=== PATIENT | male | born 1935 | race Caucasian/White ===

== ENCOUNTER → 2016-05-29 | Day surgery (SDC) | payer MEDICARE, BC ==
[~2016-05-29] VITALS: Ht 182.9 cm; Wt 69.3 kg
[~2016-05-29] MED LIST: ASPIRIN 81M81 MG/TA2 PO; BACTRIM DS 8001 TAB PO; CIPRO 500MG TA500 MG PO; FERROUS SU325 MG/TAB PO; IRON325 MG PO; LASIX 20MG TABL20 MG PO; MULTI VITAMINS1 TAB PO; MULTIPLE VITAMI1 CAP PO; NORCO 325 MG-51 TAB PO
[2016-05-29 09:56] VITALS: BP 113/63; PULSE 75; TEMP 97.3
[2016-05-29 11:42] VITALS: BP 115/49; PULSE 72; TEMP 98.2
[2016-05-29 11:45] VITALS: BP 108/49; PULSE 73
[2016-05-29 12:00] VITALS: BP 117/46; PULSE 76
[2016-05-29 12:15] VITALS: BP 103/53; PULSE 77
[2016-05-29 12:30] VITALS: BP 122/59; PULSE 76
== END ==
LOC: SDCO 09:05
DX: C78.7 Secondary malignant neoplasm of liver and intrahepatic bile duct (principal); C20 Malignant neoplasm of rectum; Z92.21 Personal history of antineoplastic chemotherapy; Z92.3 Personal history of irradiation
CPT/HCPCS: C1788; J0690; J1644; J2250; J2405; J2704; J3010; J7120

== ENCOUNTER 2016-06-28 18:04 | Inpatient (IN) | payer MEDICARE, BC ==
[~2016-06-28] VITALS: Ht 182.9 cm; Wt 61.1 kg
[~2016-06-28 18:04] MED LIST changes: -ASPIRIN 81M81 MG/TA2 PO; -BACTRIM DS 8001 TAB PO; -CIPRO 500MG TA500 MG PO; -FERROUS SU325 MG/TAB PO; -LASIX 20MG TABL20 MG PO; -MULTIPLE VITAMI1 CAP PO; -NORCO 325 MG-51 TAB PO
[2016-06-28 18:18] VITALS: BP 111/54; PULSE 89; TEMP 97.8
[2016-06-28 22:46] VITALS: BP 131/61; PULSE 100; TEMP 98.1
[2016-06-29] VITALS (17 sets, daily range): BP systolic 76–125; BP diastolic 29–59; PULSE 54–102; TEMP 97.4–101.4
[2016-06-30 01:32] VITALS: BP 93/43; PULSE 83; TEMP 99.3
[2016-06-30 06:17] VITALS: BP 98/54; PULSE 80; TEMP 98.2
[2016-06-30 09:20] VITALS: BP 107/53; PULSE 84; TEMP 97.4
[2016-06-30 13:37] VITALS: BP 111/48; PULSE 81; TEMP 98.4
[2016-06-30] MEDS ORDERED: NORCO 325 MG-51 TAB PO (16:15)
[2016-06-30] MEDS ORDERED: BACTRIM DS 8001 TAB PO (16:16)
== END 2016-06-30 17:20 | disposition home or self-care (01) | DRG 982 ==
LOC: SURG 18:04
PROVIDERS: Urology
PROC: 0KBM0ZZ Excision of Perineum Muscle, Open Approach (ICD-10-PCS; principal; 2016-06-29 10:30)
DX: N49.2 Inflammatory disorders of scrotum (principal); C20 Malignant neoplasm of rectum; C78.7 Secondary malignant neoplasm of liver and intrahepatic bile duct; B96.20 Unspecified Escherichia coli [E. coli] as the cause of diseases classified elsewhere
CPT/HCPCS: J0696; J2405; J2704; J3010; J7030

== ENCOUNTER → 2016-06-28 | Outpatient (CLI) | payer MEDICARE, BC | LOC: COL.RAD 09:00 | DX: N49.2 Inflammatory disorders of scrotum (principal) ==

== ENCOUNTER 2016-08-10 07:22 | Inpatient (IN) | payer MEDICARE, BC ==
[~2016-08-10] VITALS: Ht 182.9 cm; Wt 65.4 kg
[2016-08-10] VITALS (18 sets, daily range): BP systolic 103–152; BP diastolic 50–75; PULSE 66–81; TEMP 97–98.1
[~2016-08-10 07:22] MED LIST changes: +BACTRIM DS 8001 TAB PO; +NORCO 325 MG-51 TAB PO
[2016-08-10] MEDS ORDERED: ASPIRIN 81M81 MG/TA2 PO (07:42)
[2016-08-10] MEDS ORDERED: CIPRO 500MG TA500 MG PO (07:42)
[2016-08-10 08:26] LABS: BASO # 0.1 (0.0-0.2); BASO % 0.5 % (0.0-2.0); EOS # 0.1 (0.0-0.7); EOS % 0.6 % (0-4.0); GRAN # 6.5 (1.4-6.5); GRAN % 69.8 % (42.2-75.2); LYMPH # 1.7 (1.2-3.4); LYMPH % 18.6 % (20.0-51.0); MEAN CELL VOLUME 90 fl (80.0-100.0); MEAN CORPUSCULAR HGB CONC 32 g/dl (33.0-37.0); MEAN PLATELET VOLUME 8.6 fl (7.4-10.4); MONO # 0.9 (0.1-0.6); MONO % 10.1 % (1.7-9.3); PLATELET COUNT 205 K/mm3 (130-400); REDCELL DISTRIBUTION WIDTH-CV 19.2 % (11.5-14.5); WHITE BLOOD COUNT 9.3 K/mm3 (4.8-10.8)
[2016-08-10 08:30] LABS: HEMATOCRIT 25.2 % (42.0-52.0); MEAN CORPUSCULAR HEMOGLOBIN 29 pg (27.0-31.0)
[2016-08-10 08:31] LABS: INR 1.2 (0.8-3.0); PROTHROMBIN TIME 13.2 SECONDS (9.7-12.8)
[2016-08-10 08:33] LABS: PARTIAL THROMBOPLASTIN TIME 29.5 SECONDS (26.0-37.0)
[2016-08-10 08:43] LABS: ADJUSTED CALCIUM 9.5 mg/dL (8.4-10.2); ALBUMIN 3.5 gm/dL (3.5-5.0); BILIRUBIN,TOTAL 0.7 mg/dL (0.0-1.0); C-REACTIVE PROTEIN 3.2 mg/dL (0.0-0.9); CALCIUM 9.1 mg/dL (8.4-10.2); CREATININE, serum 1.13 mg/dL (0.66-1.25); POTASSIUM 4.4 mmol/L (3.4-5.0); TOTAL PROTEIN 6.8 gm/dL (6.4-8.2)
[2016-08-10 08:49] LABS: PH 8 (5-8); SQUAMOUS EPITHELIAL None Seen /hpf; URINE BACTERIA None Seen /hpf; URINE BILIRUBIN Negative (NEGATIVE); URINE BLOOD 3+ (NEGATIVE); URINE GLUCOSE 2+ (NEGATIVE); URINE KETONE Trace (NEGATIVE); URINE RBC >50 /hpf; URINE UROBILINOGEN Negative (NEGATIVE); URINE WBC None Seen /hpf
[2016-08-10 08:51] LABS: URINE APPEARANCE Turbid; URINE COLOR Red
[2016-08-11 01:30] VITALS: BP 123/74; PULSE 71; TEMP 98.5
[2016-08-11 05:43] VITALS: BP 110/64; PULSE 69; TEMP 97.7
[2016-08-11 08:58] VITALS: BP 110/57; PULSE 71; TEMP 97.1
[2016-08-11 09:31] LABS: CALCIUM 8.2 mg/dL (8.4-10.2); CREATININE, serum 0.87 mg/dL (0.66-1.25); POTASSIUM 4.2 mmol/L (3.4-5.0)
[2016-08-11 11:38] LABS: BASO % 0.3 % (0.0-2.0); EOS % 0.4 % (0-4.0); GRAN # 5.4 (1.4-6.5); GRAN % 70.6 % (42.2-75.2); LYMPH # 1.2 (1.2-3.4); LYMPH % 16.3 % (20.0-51.0); MEAN CELL VOLUME 90 fl (80.0-100.0); MEAN CORPUSCULAR HGB CONC 33 g/dl (33.0-37.0); MEAN PLATELET VOLUME 8.8 fl (7.4-10.4); MONO # 0.9 (0.1-0.6); MONO % 11.9 % (1.7-9.3); PLATELET COUNT 157 K/mm3 (130-400); RED BLOOD COUNT 2.79 M/mm3 (4.20-5.60); REDCELL DISTRIBUTION WIDTH-CV 19.2 % (11.5-14.5); WHITE BLOOD COUNT 7.6 K/mm3 (4.8-10.8)
[2016-08-11 11:40] LABS: HEMATOCRIT 25.1 % (42.0-52.0); HEMOGLOBIN 8.2 g/dl (13.5-18.0); MEAN CORPUSCULAR HEMOGLOBIN 29 pg (27.0-31.0)
[2016-08-11 14:13] VITALS: BP 111/56; PULSE 89; TEMP 98.3
[2016-08-11 17:32] VITALS: BP 116/76; PULSE 74; TEMP 97.7
[2016-08-11 22:00] VITALS: BP 117/63; PULSE 80; TEMP 98.5
[2016-08-12 06:00] VITALS: BP 115/55; PULSE 78; TEMP 98
[2016-08-12 09:24] VITALS: BP 131/53; PULSE 78; TEMP 97.9
[2016-08-12] MEDS ORDERED: FERROUS SU325 MG/TAB PO (11:47)
[2016-08-12] MEDS ORDERED: NORCO 325 MG-51 TAB PO (11:47)
[2016-08-12 13:16] VITALS: BP 137/56; PULSE 83; TEMP 97.9
== END 2016-08-12 14:39 | disposition home or self-care (01) | DRG 698 ==
LOC: COL.ER 07:22 → JCC 10:25
PROVIDERS: Emergency Medicine; Family Medicine; Urology
PROC: 0TCB8ZZ Extirpation of Matter from Bladder, Via Natural or Artificial Opening Endoscopic (ICD-10-PCS; principal; 2016-08-10 10:30)
DX: N30.41 Irradiation cystitis with hematuria (principal); E43 Unspecified severe protein-calorie malnutrition; C19 Malignant neoplasm of rectosigmoid junction; C78.7 Secondary malignant neoplasm of liver and intrahepatic bile duct; Z68.1 Body mass index [BMI] 19.9 or less, adult; N32.89 Other specified disorders of bladder; D64.9 Anemia, unspecified; E86.0 Dehydration
CPT/HCPCS: 99222-AI; 99232-AI; 99239; J0690; J1100; J2405; J2704; J3010; J7030; P9016; Q9967

== ENCOUNTER 2016-09-07 11:28 | Inpatient (IN) | payer MEDICARE, BC ==
[~2016-09-07] VITALS: Ht 182.9 cm; Wt 69.1 kg
[~2016-09-07 11:28] MED LIST changes: +ASPIRIN 81M81 MG/TA2 PO; +CIPRO 500MG TA500 MG PO; +FERROUS SU325 MG/TAB PO
[2016-09-07] MEDS ORDERED: MULTIPLE VITAMI1 CAP PO (14:14)
[2016-09-07] MEDS ORDERED: NORCO 325 MG-51 TAB PO ×2 (14:15→14:16)
[2016-09-07 14:41] LABS: BASO % 0.1 % (0.0-2.0); GRAN # 5.6 (1.4-6.5); GRAN % 81.1 % (42.2-75.2); LYMPH % 14.4 % (20.0-51.0); MEAN CELL VOLUME 91 fl (80.0-100.0); MEAN CORPUSCULAR HGB CONC 32 g/dl (33.0-37.0); MEAN PLATELET VOLUME 8.7 fl (7.4-10.4); MONO # 0.3 (0.1-0.6); MONO % 3.7 % (1.7-9.3); PLATELET COUNT 275 K/mm3 (130-400); RED BLOOD COUNT 3.39 M/mm3 (4.20-5.60); REDCELL DISTRIBUTION WIDTH-CV 17.7 % (11.5-14.5); WHITE BLOOD COUNT 6.9 K/mm3 (4.8-10.8)
[2016-09-07 14:42] LABS: HEMATOCRIT 30.7 % (42.0-52.0); HEMOGLOBIN 9.8 g/dl (13.5-18.0); MEAN CORPUSCULAR HEMOGLOBIN 29 pg (27.0-31.0)
[2016-09-07 14:49] LABS: ADJUSTED CALCIUM 9.3 mg/dL (8.4-10.2); ALBUMIN 3.4 gm/dL (3.5-5.0); BILIRUBIN,TOTAL 0.5 mg/dL (0.0-1.0); CALCIUM 8.8 mg/dL (8.4-10.2); CREATININE, serum 1.02 mg/dL (0.66-1.25); POTASSIUM 3.8 mmol/L (3.4-5.0); TOTAL PROTEIN 6.8 gm/dL (6.4-8.2)
[2016-09-07] MEDS ORDERED: LASIX 20MG TABL20 MG PO (16:43)
[2016-09-07 17:35] LABS: PH 6 (5-8); SQUAMOUS EPITHELIAL None Seen /hpf; URINE APPEARANCE Cloudy; URINE BACTERIA Moderate /hpf; URINE BILIRUBIN Negative (NEGATIVE); URINE BLOOD 2+ (NEGATIVE); URINE COLOR Red; URINE GLUCOSE Negative (NEGATIVE); URINE KETONE Negative (NEGATIVE); URINE RBC >50 /hpf; URINE UROBILINOGEN Negative (NEGATIVE)
[2016-09-07 17:36] LABS: URINE WBC >50 /hpf
[2016-09-07 20:00] VITALS: BP 150/72; PULSE 85; TEMP 98.3
[2016-09-08] VITALS (16 sets, daily range): BP systolic 109–152; BP diastolic 45–75; PULSE 71–97; TEMP 96.8–98
[2016-09-09] VITALS (11 sets, daily range): BP systolic 124–143; BP diastolic 51–65; PULSE 85–97; TEMP 97.6–98
[2016-09-09 08:11] LABS: MEAN CELL VOLUME 93 fl (80.0-100.0); MEAN CORPUSCULAR HGB CONC 31 g/dl (33.0-37.0); MEAN PLATELET VOLUME 9.1 fl (7.4-10.4); PLATELET COUNT 206 K/mm3 (130-400); RED BLOOD COUNT 2.31 M/mm3 (4.20-5.60); REDCELL DISTRIBUTION WIDTH-CV 18.1 % (11.5-14.5); WHITE BLOOD COUNT 6.1 K/mm3 (4.8-10.8)
[2016-09-09 08:22] LABS: CALCIUM 7.5 mg/dL (8.4-10.2); MAGNESIUM 2.2 mg/dL (1.6-2.3); PHOSPHOROUS 2.7 mg/dL (2.5-4.5); POTASSIUM 4.2 mmol/L (3.4-5.0)
[2016-09-09 08:27] LABS: HEMATOCRIT 21.4 % (42.0-52.0); HEMOGLOBIN 6.6 g/dl (13.5-18.0); MEAN CORPUSCULAR HEMOGLOBIN 29 pg (27.0-31.0)
[2016-09-09 15:32] LABS: HEMATOCRIT 23.8 % (42.0-52.0); HEMOGLOBIN 7.7 g/dl (13.5-18.0)
[2016-09-10 01:50] VITALS: BP 140/63; PULSE 79; TEMP 99
[2016-09-10 04:45] VITALS: BP 160/74; PULSE 110; TEMP 98.9
[2016-09-10 08:01] LABS: HEMATOCRIT 25.1 % (42.0-52.0); HEMOGLOBIN 7.9 g/dl (13.5-18.0)
[2016-09-10 10:02] VITALS: BP 148/71; PULSE 97; TEMP 97.8
[2016-09-10 13:18] VITALS: BP 160/77; PULSE 99; TEMP 98
[2016-09-10 17:33] VITALS: BP 161/79; PULSE 102; TEMP 98.7
[2016-09-10 22:28] VITALS: BP 153/82; PULSE 102; TEMP 98.2
[2016-09-11 05:01] VITALS: BP 173/86; PULSE 102; TEMP 98.4
[2016-09-11 09:52] VITALS: BP 144/78; PULSE 103; TEMP 98.5
[2016-09-11 13:03] LABS: HEMATOCRIT 25.9 % (42.0-52.0); HEMOGLOBIN 8.3 g/dl (13.5-18.0)
== END 2016-09-11 17:05 | disposition home health service (06) | DRG 329 ==
LOC: COL.ER 11:28 → SURG 15:55
PROVIDERS: Family Medicine; Surgery
PROC: 0D9P0ZZ Drainage of Rectum, Open Approach (ICD-10-PCS; 2016-09-07)
PROC: 0D1N0Z4 Bypass Sigmoid Colon to Cutaneous, Open Approach (ICD-10-PCS; principal; 2016-09-09)
DX: C19 Malignant neoplasm of rectosigmoid junction (principal); E43 Unspecified severe protein-calorie malnutrition; C78.7 Secondary malignant neoplasm of liver and intrahepatic bile duct; N32.1 Vesicointestinal fistula
CPT/HCPCS: A4315; A9284; J0694; J1170; J1650; J1956; J2250; J2405; J2704; J2710; J3010; J7030; J7120; P9016; Q9967

== ENCOUNTER → 2016-09-25 | Outpatient (CLI) | payer MEDICARE, BC ==
[~2016-09-25] MED LIST changes: +LASIX 20MG TABL20 MG PO; +MULTIPLE VITAMI1 CAP PO
== END ==
LOC: WCC 12:37
DX: L89.152 Pressure ulcer of sacral region, stage 2 (principal); T81.31XA Disruption of external operation (surgical) wound, not elsewhere classified, initial encounter; Z71.89 Other specified counseling
CPT/HCPCS: 17717; 27517; A6207; A6212; G0463

== ENCOUNTER → 2016-10-03 | Outpatient (CLI) | payer MEDICARE, BC | LOC: WCC 09:17 | DX: L89.301 Pressure ulcer of unspecified buttock, stage 1 (principal); Z93.3 Colostomy status | CPT/HCPCS: 17717; A6212; G0463 ==

== ENCOUNTER 2016-11-05 10:30 | Outpatient (RCR) | payer MEDICARE, BC ==
[2016-10-12 15:17] VITALS: BP 140/65; PULSE 73; TEMP 98
[2016-10-12 15:32] VITALS: BP 134/57; PULSE 75; TEMP 98.5
[2016-10-12 15:50] VITALS: BP 135/51; PULSE 72; TEMP 99.4
[2016-10-12 16:20] VITALS: BP 132/55; PULSE 74; TEMP 99
[2016-10-12 17:50] VITALS: BP 122/64; PULSE 74; TEMP 98.6
[2016-11-05] VITALS (9 sets, daily range): BP systolic 121–148; BP diastolic 58–79; PULSE 58–82; TEMP 97.4–98.2
[2016-11-17] VITALS (8 sets, daily range): BP systolic 96–150; BP diastolic 41–79; PULSE 67–79; TEMP 97.1–98.1
== END 2016-11-17 20:02 | disposition home or self-care (01) ==
LOC: EUO 10:30 → MEDICAL 10:30 → EUO 11-17 20:02
DX: C20 Malignant neoplasm of rectum (principal); C18.9 Malignant neoplasm of colon, unspecified; D64.9 Anemia, unspecified
CPT/HCPCS: OP; J7050; P9016

== ENCOUNTER → 2016-11-14 | Outpatient (CLI) | payer MEDICARE, BC ==
[~2016-11-14] MED LIST changes: +FUSILEV50 MG IV; +HCTZ 25MG TAB25 MG PO
== END ==
LOC: COL.RAD 11-11 10:30
DX: C20 Malignant neoplasm of rectum (principal); C78.02 Secondary malignant neoplasm of left lung; C78.7 Secondary malignant neoplasm of liver and intrahepatic bile duct; R91.8 Other nonspecific abnormal finding of lung field; J98.4 Other disorders of lung; M46.90 Unspecified inflammatory spondylopathy, site unspecified; N13.30 Unspecified hydronephrosis; N32.89 Other specified disorders of bladder; R19.00 Intra-abdominal and pelvic swelling, mass and lump, unspecified site; Z95.828 Presence of other vascular implants and grafts; Z93.3 Colostomy status

== ENCOUNTER 2016-11-21 14:33 | Observation (INO) | payer MEDICARE, BC ==
[~2016-11-21] VITALS: Ht 182.9 cm; Wt 67.8 kg
[2016-11-21] VITALS (8 sets, daily range): BP systolic 132–174; BP diastolic 68–95; PULSE 73–87; TEMP 98–98.8
[~2016-11-21 14:33] MED LIST changes: -FUSILEV50 MG IV; -HCTZ 25MG TAB25 MG PO
[2016-11-21] MEDS ORDERED: FUSILEV50 MG IV (15:05)
[2016-11-21] MEDS ORDERED: NORCO 325 MG-51 TAB PO (15:06)
[2016-11-21 16:20] LABS: CALCIUM 7.9 mg/dL (8.4-10.2); CREATININE, serum 2.89 mg/dL (0.66-1.25); POTASSIUM 4.3 mmol/L (3.4-5.0)
[2016-11-21 22:52] LABS: MEAN CELL VOLUME 89 fl (80.0-100.0); MEAN CORPUSCULAR HGB CONC 32 g/dl (33.0-37.0); MEAN PLATELET VOLUME 9.8 fl (7.4-10.4); PLATELET COUNT 81 K/mm3 (130-400); RED BLOOD COUNT 3.78 M/mm3 (4.20-5.60); REDCELL DISTRIBUTION WIDTH-CV 17.2 % (11.5-14.5); WHITE BLOOD COUNT 3.3 K/mm3 (4.8-10.8)
[2016-11-21 22:54] LABS: ADD PATHOLOGY DIFF REVIEW NO; HEMATOCRIT 33.7 % (42.0-52.0); HEMOGLOBIN 10.9 g/dl (13.5-18.0); MEAN CORPUSCULAR HEMOGLOBIN 29 pg (27.0-31.0)
[2016-11-21 23:20] LABS: BAND 14 % (0-10); NEUTROPHILS 68 % (42.0-75.2); TOTAL CELLS COUNTED 100
[2016-11-22] VITALS (8 sets, daily range): BP systolic 110–164; BP diastolic 68–86; PULSE 49–89; TEMP 97.5–98.6
[2016-11-22 01:27] LABS: PH 6 (5-8); SQUAMOUS EPITHELIAL 0-2 /hpf; URINE APPEARANCE Cloudy; URINE BACTERIA None Seen /hpf; URINE BILIRUBIN Negative (NEGATIVE); URINE BLOOD 3+ (NEGATIVE); URINE COLOR Yellow; URINE GLUCOSE Negative (NEGATIVE); URINE KETONE Negative (NEGATIVE); URINE RBC >50 /hpf; URINE UROBILINOGEN Negative (NEGATIVE); URINE WBC >50 /hpf
[2016-11-22 06:46] LABS: MEAN CELL VOLUME 89 fl (80.0-100.0); MEAN CORPUSCULAR HGB CONC 33 g/dl (33.0-37.0); MEAN PLATELET VOLUME 9.6 fl (7.4-10.4); PLATELET COUNT 86 K/mm3 (130-400); RED BLOOD COUNT 2.98 M/mm3 (4.20-5.60); REDCELL DISTRIBUTION WIDTH-CV 17.1 % (11.5-14.5); WHITE BLOOD COUNT 3.8 K/mm3 (4.8-10.8)
[2016-11-22 06:49] LABS: ADD PATHOLOGY DIFF REVIEW NO; HEMATOCRIT 26.5 % (42.0-52.0); HEMOGLOBIN 8.6 g/dl (13.5-18.0); MEAN CORPUSCULAR HEMOGLOBIN 29 pg (27.0-31.0)
[2016-11-22 06:59] LABS: CALCIUM 7.6 mg/dL (8.4-10.2); CREATININE, serum 2.42 mg/dL (0.66-1.25); POTASSIUM 4.5 mmol/L (3.4-5.0)
[2016-11-22 07:09] LABS: BAND 2 % (0-10); NEUTROPHILS 80 % (42.0-75.2); PLATELET ESTIMATE DECREASED (NORMAL); TARGET CELLS 1+; TOTAL CELLS COUNTED 100
[2016-11-22 10:14] LABS: INR 1.2 (0.8-3.0); PROTHROMBIN TIME 13.8 SECONDS (9.7-12.8)
[2016-11-22 16:34] LABS: ADD PATHOLOGY DIFF REVIEW NO
[2016-11-22 16:40] LABS: MEAN CELL VOLUME 89 fl (80.0-100.0); MEAN CORPUSCULAR HGB CONC 33 g/dl (33.0-37.0); MEAN PLATELET VOLUME 10.3 fl (7.4-10.4); PLATELET COUNT 85 K/mm3 (130-400); RED BLOOD COUNT 3.09 M/mm3 (4.20-5.60); REDCELL DISTRIBUTION WIDTH-CV 16.9 % (11.5-14.5); RETIC % 0.4 % (0.5-3.52); WHITE BLOOD COUNT 4.4 K/mm3 (4.8-10.8)
[2016-11-22 16:42] LABS: HEMATOCRIT 27.5 % (42.0-52.0); HEMOGLOBIN 9.1 g/dl (13.5-18.0); MEAN CORPUSCULAR HEMOGLOBIN 29 pg (27.0-31.0)
[2016-11-22 17:07] LABS: BAND 5 % (0-10); NEUTROPHILS 87 % (42.0-75.2); TOTAL CELLS COUNTED 100
[2016-11-23 01:44] VITALS: BP 163/77; PULSE 76; TEMP 98.1
[2016-11-23 05:53] VITALS: BP 169/78; PULSE 78; TEMP 97.9
[2016-11-23 09:52] VITALS: BP 173/82; PULSE 84; TEMP 98.1
[2016-11-23 10:41] LABS: MEAN CELL VOLUME 91 fl (80.0-100.0); MEAN CORPUSCULAR HGB CONC 32 g/dl (33.0-37.0); MEAN PLATELET VOLUME 9.9 fl (7.4-10.4); PLATELET COUNT 58 K/mm3 (130-400); RED BLOOD COUNT 2.93 M/mm3 (4.20-5.60); WHITE BLOOD COUNT 4.9 K/mm3 (4.8-10.8)
[2016-11-23 10:48] LABS: HEMATOCRIT 26.6 % (42.0-52.0); HEMOGLOBIN 8.5 g/dl (13.5-18.0); MEAN CORPUSCULAR HEMOGLOBIN 29 pg (27.0-31.0)
[2016-11-23 10:54] LABS: CALCIUM 7.7 mg/dL (8.4-10.2); CREATININE, serum 1.76 mg/dL (0.66-1.25); POTASSIUM 4.1 mmol/L (3.4-5.0)
[2016-11-23] MEDS ORDERED: HCTZ 25MG TAB25 MG PO (12:41)
[2016-11-23 13:37] VITALS: BP 170/82; PULSE 81; TEMP 99.1
== END 2016-11-23 15:30 | disposition home or self-care (01) ==
LOC: SDCO 14:33 → SURG 17:24
PROVIDERS: Family Medicine; Internal Medicine Cardiovascular Disease; Radiology Diagnostic Radiology; Urology
DX: N13.5 Crossing vessel and stricture of ureter without hydronephrosis (principal); Z85.048 Personal history of other malignant neoplasm of rectum, rectosigmoid junction, and anus; I10 Essential (primary) hypertension; N30.40 Irradiation cystitis without hematuria; D50.9 Iron deficiency anemia, unspecified; M19.90 Unspecified osteoarthritis, unspecified site
CPT/HCPCS: 99222-AI; 99232-AI; 99233-AI; C1729; C1769; C1894; G0378; J0690; J1100; J1644; J2250; J2270; J2704; J3010; J7030; J7040; J7120; Q9967

== ENCOUNTER → 2016-11-25 | Outpatient (CLI) | payer MEDICARE, BC ==
[~2016-11-25] MED LIST changes: +FUSILEV50 MG IV; +HCTZ 25MG TAB25 MG PO
[2016-11-25 15:05] VITALS: BP 140/77; PULSE 86
== END ==
LOC: COL.RAD 13:59
DX: Z01.89 Encounter for other specified special examinations (principal)

== ENCOUNTER → 2016-12-06 | Outpatient (CLI) | payer MEDICARE, BC ==
[~2016-12-06] MED LIST changes: +LEVAQUIN 5500 MG/TA1 PO
== END ==
LOC: COL.RAD 15:34
DX: C21.8 Malignant neoplasm of overlapping sites of rectum, anus and anal canal (principal); N43.3 Hydrocele, unspecified; N45.2 Orchitis; K60.5 Anorectal fistula